=== PATIENT | male | born 1985 | race Caucasian/White ===

== ENCOUNTER 2023-08-14 14:19 | Outpatient (CLI) | payer OTHER, SELFPAY | END 2023-08-14 14:20 | disposition home or self-care (01) | LOC: CSHWCC 14:19 | PROVIDERS: ATTEND Nurse Practitioner Family | DX: T21.21XD Burn of second degree of chest wall, subsequent encounter (principal); T20.27XD Burn of second degree of neck, subsequent encounter; T22.212D Burn of second degree of left forearm, subsequent encounter; T23.271D Burn of second degree of right wrist, subsequent encounter; T23.211D Burn of second degree of right thumb (nail), subsequent encounter; T23.212D Burn of second degree of left thumb (nail), subsequent encounter; T22.232D Burn of second degree of left upper arm, subsequent encounter | CPT/HCPCS: 99214; G0463 ==